=== PATIENT | female | born 1985 | race Caucasian/White ===

== ENCOUNTER 2024-03-23 08:55 | Inpatient (IN) | payer BC ==
[2024-03-23] VITALS (15 sets, daily range): BP systolic 134–162; BP diastolic 62–92; TEMP 97.8–98.7; O2SAT 99
[~2024-03-23] VITALS: Ht 165.1 cm; Wt 54.4 kg
[2024-03-23 11:00] LABS: BILIRUBIN,URINE NEGATIVE (NEGATIVE); BLOOD, URINE TRACE-INTA Ery/uL (NEGATIVE); COLOR,URINE YELLOW (YELLOW); KETONES,URINE NEGATIVE (NEGATIVE); LEUKOCYTE ESTERASE ,URINE 1+ (NEGATIVE); NITRITE, URINE NEGATIVE (NEGATIVE); PH,URINE 7.5 (5.0-8.0); PROTEIN,URINE 2+ mg/dl (NEGATIVE); UGLUCOSE NEGATIVE (NEGATIVE); UROBILINOGEN,URINE 0.2 EU/dL (0.2)
[2024-03-23 11:08] LABS: APPEARANCE,URINE CLEAR (CLEAR)
[2024-03-23 11:10] LABS: ACETAMINOPHEN < 10 ug/ml (10-30); ALANINE AMINOTRANSFERASE 50 U/L (12-78); ALBUMIN 2.1 g/dL (3.4-5.0); ALKALINE PHOSPHATASE 198 U/L (46-116); ASPARTATE AMINOTRANSFERASE 28 U/L (15-37); BILIRUBIN,DIRECT 0.1 mg/dL (0.0-0.2); BILIRUBIN,TOTAL 0.5 mg/dL (0.2-1.0); CALCIUM, SERUM 7.5 mg/dL (8.5-10.1); CARBON DIOXIDE 17 mmol/L (21-32); CHLORIDE 103 mmol/L (98-107); CREATININE 6.3 mg/dL (0.6-1.3); GLUCOSE 88 mg/dL (74-106); POTASSIUM 5.1 mmol/L (3.5-5.1); SALICYLATE 3.3 mg/dL (2.8-20.0); SODIUM SERUM 137 mmol/L (136-145); TOTAL PROTEIN, SERUM 5.6 g/dL (6.4-8.2)
[2024-03-23 11:13] LABS: ALCOHOL, BLOOD < 3 mg/dL (0-10); UREA NITROGEN, BLOOD 97 mg/dL (7-18)
[2024-03-23 11:29] LABS: RBC,URINE 0-2 /HPF (0-2)
[2024-03-23 11:30] LABS: ADD URINE CULTURE YES; BACTERIA,URINE None seen /HPF (None Seen); YEAST,URINE None Seen /HPF (None Seen)
[2024-03-23 11:31] LABS: TRIPLE PHOSPHATE CRYSTAL,UR Few /HPF (None Seen)
[2024-03-23] MEDS ORDERED: LEVO75TA7 PO (11:46)
[2024-03-23] MEDS ORDERED: LURA40TA PO (11:46)
[2024-03-23] MEDS ORDERED: SERT50TA PO (11:46)
[2024-03-23 11:57] LABS: BASOPHILS % (AUTO) 0.4 % (0.0-2.0); EOSINOPHILS # (AUTO) 0.1 K/uL (0.0-0.7); EOSINOPHILS % (AUTO) 1.6 % (0.0-6.0); LYMPHOCYTES # (AUTO) 0.7 K/uL (0.8-4.8); LYMPHOCYTES % (AUTO) 9.3 % (20.0-44.0); MEAN CORPUSCULAR HEMOGLOBIN 34 PG (26.0-33.0); MEAN CORPUSCULAR HGB CONC 34 g/dl (31.0-36.0); MEAN CORPUSCULAR VOLUME 101 fL (82-100); MONOCYTES # (AUTO) 0.4 K/uL (0.1-1.30); MONOCYTES % (AUTO) 5.9 % (2.0-12.0); NEUTROPHILS # (AUTO) 5.9 K/uL (1.8-8.9); NEUTROPHILS % (AUTO) 82.8 % (43.0-81.0); PLATELET COUNT (AUTO) 155 K/uL (150-450); RED CELL DISTRIBUTION WIDTH 16.8 % (11.5-15.0); WHITE BLOOD COUNT (AUTO) 7.1 K/uL (4.3-11.0)
[2024-03-23 12:03] LABS: RED BLOOD CELL COUNT(AUTO) 1.13 MIL/uL (4.0-5.2)
[2024-03-23 12:05] LABS: HEMATOCRIT 11 % (33-45); HEMOGLOBIN 3.9 g/dL (11.5-14.8)
[2024-03-23 12:09] LABS: AMPHETAMINE, URINE NEGATIVE (NEGATIVE); BENZODIAZEPINE, URINE NEGATIVE (NEGATIVE); CANNABINOID, URINE NEGATIVE (NEGATIVE); COCCAINE, URINE NEGATIVE (NEGATIVE); OPIATE, URINE NEGATIVE (NEGATIVE); PHENCYCLIDINE SCREEN,URINE NEGATIVE (NEGATIVE)
[2024-03-23 12:10] LABS: BARBITURATE, URINE POSITIVE (NEGATIVE)
[2024-03-23 14:04] LABS: ANISOCYTOSIS 1+; EOSINOPHILS % (MANUAL) 1 % (0-4); LYMPHOCYTES % (MANUAL) 10 % (16-48); MONOCYTES % (MANUAL) 5 % (0-11.0); NEUTROPHILS % (MANUAL) 82 (42-76); OVALOCYTES 1+; PLATELET ESTIMATE ADEQUATE
[2024-03-23] MEDS: ONDANSETRON HCL/PF - ER 4 MG/2 ML VIAL IV ONE (14:37)
[2024-03-23] MEDS ORDERED: ONDANSETRON HCL/PF 4 MG/2 ML VIAL ONE (14:37)
[2024-03-23] MEDS: ACETAMINOPHEN ES 500 MG TABLET PO PRN (14:43)
[2024-03-23] MEDS ORDERED: ACETAMINOPHEN ES 500 MG TABLET ONE ×2 (14:43→14:44)
[2024-03-23] MEDS ORDERED: Z GUARD REMEDY 4 OZ OINT TP PRN (15:00)
[2024-03-23] MEDS: SOD FERRIC GLUC 125 MG in IV NS 0.9% 100 ML IV SCH (15:30)
[2024-03-23 16:23] LABS: FERRITIN 217 ng/mL (8-388)
[2024-03-23] MEDS: ONDANSETRON HCL/PF 4 MG/2 ML VIAL IVP PRN (16:27)
[2024-03-23] MEDS: HYDROCODONE/APAP 5/325MG TABLET PO PRN (16:34)
[2024-03-23 16:52] LABS: IRON, SERUM 28 ug/dl (50-175); TOTAL IRON BINDING CAPACITY 249 ug/dl (250-450)
[2024-03-23] MEDS: ACETAMINOPHEN 325 MG TABLET PO PRN (19:54)
[2024-03-24] VITALS (9 sets, daily range): BP systolic 137–159; BP diastolic 57–97; TEMP 97.6–98.6; O2SAT 96–99
[2024-03-24] MEDS: HYDROMORPHONE 1 MG/1 ML DISP.SYRIN IV ONE (04:52)
[2024-03-24 08:29] LABS: BASOPHILS % (AUTO) 0.7 % (0.0-2.0); EOSINOPHILS # (AUTO) 0.1 K/uL (0.0-0.7); EOSINOPHILS % (AUTO) 1.9 % (0.0-6.0); HEMATOCRIT 23 % (33-45); HEMOGLOBIN 7.7 g/dL (11.5-14.8); LYMPHOCYTES # (AUTO) 0.4 K/uL (0.8-4.8); LYMPHOCYTES % (AUTO) 7.3 % (20.0-44.0); MEAN CORPUSCULAR HEMOGLOBIN 30 PG (26.0-33.0); MEAN CORPUSCULAR HGB CONC 34 g/dl (31.0-36.0); MEAN CORPUSCULAR VOLUME 88 fL (82-100); MONOCYTES # (AUTO) 0.4 K/uL (0.1-1.30); MONOCYTES % (AUTO) 6.3 % (2.0-12.0); NEUTROPHILS % (AUTO) 83.8 % (43.0-81.0); PLATELET COUNT (AUTO) 157 K/uL (150-450); RED BLOOD CELL COUNT(AUTO) 2.56 MIL/uL (4.0-5.2); RED CELL DISTRIBUTION WIDTH 18.2 % (11.5-15.0)
[2024-03-24 09:19] LABS: THYROID STIMULATING HORMONE 4.238 uIU/mL (0.358-3.74)
[2024-03-24] MEDS ORDERED: ANESTHESIA TRAY IN PYXIS 1 EA TRAY MC ONE (09:33)
[2024-03-24 09:37] LABS: CALCIUM, SERUM 8.4 mg/dL (8.5-10.1); CREATININE 3.3 mg/dL (0.6-1.3); MAGNESIUM 1.9 mg/dL (1.8-2.4); PHOSPHORUS 6.2 mg/dL (2.5-4.9); POTASSIUM 3.8 mmol/L (3.5-5.1)
[2024-03-24 09:41] LABS: PREGNANCY TEST URINE QUAL NEGATIVE (NEGATIVE)
[2024-03-24 10:06] LABS: INR 1.02 (0.91-1.10); PROTHROMBIN TIME 10.8 SECS (9.2-11.1)
[2024-03-24] MEDS: PANTOPRAZOLE 40 MG TABLET.DR PO SCH (11:06)
[2024-03-24] MEDS: diphenhydrAMINE HCL 50 MG/ML VIAL IV ONE (11:31)
[2024-03-24] MEDS: METOCLOPRAMIDE HCL 10 MG/2 ML VIAL IV ONE (11:31)
[2024-03-24] MEDS: SUCRALFATE 1 G/10 ML UDC GT SCH (11:31)
[2024-03-24] MEDS: FLUTICASONE PROPIONATE 16 GM BOTTLE NS SCH (15:41)
[2024-03-24] MEDS: SUMATRIPTAN SUCCINATE 25 MG TABLET PO ONE (18:50)
[2024-03-25] MEDS: TEMAZEPAM 15 MG CAPSULE PO PRN (01:12)
[2024-03-25 04:00] VITALS: BP 152/99; TEMP 98; O2SAT 99
[2024-03-25 06:59] LABS: BASOPHILS % (AUTO) 0.5 % (0.0-2.0); EOSINOPHILS # (AUTO) 0.2 K/uL (0.0-0.7); EOSINOPHILS % (AUTO) 3.1 % (0.0-6.0); HEMATOCRIT 22 % (33-45); HEMOGLOBIN 7.8 g/dL (11.5-14.8); LYMPHOCYTES # (AUTO) 0.8 K/uL (0.8-4.8); LYMPHOCYTES % (AUTO) 16.1 % (20.0-44.0); MEAN CORPUSCULAR HEMOGLOBIN 31 PG (26.0-33.0); MEAN CORPUSCULAR HGB CONC 35 g/dl (31.0-36.0); MEAN CORPUSCULAR VOLUME 90 fL (82-100); MONOCYTES # (AUTO) 0.5 K/uL (0.1-1.30); MONOCYTES % (AUTO) 9.3 % (2.0-12.0); NEUTROPHILS # (AUTO) 3.5 K/uL (1.8-8.9); PLATELET COUNT (AUTO) 156 K/uL (150-450); RED BLOOD CELL COUNT(AUTO) 2.49 MIL/uL (4.0-5.2); RED CELL DISTRIBUTION WIDTH 18.5 % (11.5-15.0); WHITE BLOOD COUNT (AUTO) 4.9 K/uL (4.3-11.0)
[2024-03-25 07:25] LABS: CALCIUM, SERUM 7.5 mg/dL (8.5-10.1); CREATININE 4.1 mg/dL (0.6-1.3); PHOSPHORUS 7.2 mg/dL (2.5-4.9)
[2024-03-25 08:38] VITALS: BP 158/82; TEMP 98.6; O2SAT 96
[2024-03-25] MEDS: LEVOTHYROXINE SODIUM 75 MCG TABLET PO SCH (08:40)
[2024-03-25] MEDS: SERTRALINE HCL 50 MG TABLET PO SCH (08:40)
[2024-03-25 16:07] VITALS: BP 138/68; TEMP 98.5; O2SAT 99
[2024-03-26 01:00] VITALS: BP 167/106; TEMP 98; O2SAT 95
[2024-03-26 01:22] VITALS: BP 164/99; TEMP 98; O2SAT 95
[2024-03-26 02:06] LABS: HEPATITIS B CORE AB, IgM Negative (Negative); HEPATITIS B CORE AB, TOTAL Negative (Negative); HEPATITIS B SURFACE AB Reactive (.)
[2024-03-26 07:31] LABS: BASOPHILS % (AUTO) 0.5 % (0.0-2.0); EOSINOPHILS # (AUTO) 0.2 K/uL (0.0-0.7); EOSINOPHILS % (AUTO) 3.2 % (0.0-6.0); HEMATOCRIT 23 % (33-45); HEMOGLOBIN 7.8 g/dL (11.5-14.8); LYMPHOCYTES # (AUTO) 0.6 K/uL (0.8-4.8); LYMPHOCYTES % (AUTO) 9.5 % (20.0-44.0); MEAN CORPUSCULAR HEMOGLOBIN 30 PG (26.0-33.0); MEAN CORPUSCULAR HGB CONC 33 g/dl (31.0-36.0); MEAN CORPUSCULAR VOLUME 91 fL (82-100); MONOCYTES # (AUTO) 0.5 K/uL (0.1-1.30); MONOCYTES % (AUTO) 8.1 % (2.0-12.0); NEUTROPHILS # (AUTO) 4.7 K/uL (1.8-8.9); NEUTROPHILS % (AUTO) 78.7 % (43.0-81.0); PLATELET COUNT (AUTO) 176 K/uL (150-450); RED BLOOD CELL COUNT(AUTO) 2.56 MIL/uL (4.0-5.2); RED CELL DISTRIBUTION WIDTH 18.9 % (11.5-15.0); WHITE BLOOD COUNT (AUTO) 5.9 K/uL (4.3-11.0)
[2024-03-26 08:00] VITALS: BP 166/97; TEMP 97.8; O2SAT 95
[2024-03-26 08:11] LABS: HEPATITIS B SURFACE AB Reactive (.)
[2024-03-26 08:57] LABS: CALCIUM, SERUM 8.8 mg/dL (8.5-10.1); CREATININE 4.5 mg/dL (0.6-1.3); PHOSPHORUS 7.8 mg/dL (2.5-4.9); POTASSIUM 4.6 mmol/L (3.5-5.1)
[2024-03-26 09:02] LABS: MAGNESIUM 2.1 mg/dL (1.8-2.4)
[2024-03-26 09:59] VITALS: BP 166/97
[2024-03-26] MEDS: hydrALAZINE HCL 25 MG TABLET PO PRN (09:59)
[2024-03-26] MEDS: ALPRAZOLAM 0.25 MG TABLET PO ONE (10:58)
[2024-03-26] MEDS: SUCRALFATE 1 G TABLET PO SCH (12:00)
[2024-03-26] MEDS ORDERED: PANT40TA49 PO (12:21)
[2024-03-26] MEDS ORDERED: FERR325T23 PO (12:21)
[2024-03-26] MEDS ORDERED: SUCR1TAB31 PO (12:21)
== END 2024-03-26 12:34 | disposition home or self-care (01) | DRG 377 ==
LOC: ER 09:16 → TRANSITION 14:25 → TELE1 16:07 → MEDSG1 03-24 11:19
PROVIDERS: ADMIT Nurse Practitioner Family; ATTEND Student in an Organized Health Care Education/Training Program
PROC: 30233N1 Transfusion of Nonautologous Red Blood Cells into Peripheral Vein, Percutaneous Approach (ICD-10-PCS; principal; 2024-03-23)
PROC: 05HB33Z Insertion of Infusion Device into Right Basilic Vein, Percutaneous Approach (ICD-10-PCS; 2024-03-23)
PROC: B54MZZA Ultrasonography of Right Upper Extremity Veins, Guidance (ICD-10-PCS; 2024-03-23)
PROC: 0DB98ZX Excision of Duodenum, Via Natural or Artificial Opening Endoscopic, Diagnostic (ICD-10-PCS; 2024-03-24)
PROC: 5A1D70Z Performance of Urinary Filtration, Intermittent, Less than 6 Hours Per Day (ICD-10-PCS; 2024-03-24)
DX: K25.4 Chronic or unspecified gastric ulcer with hemorrhage (principal); N17.0 Acute kidney failure with tubular necrosis; E44.0 Moderate protein-calorie malnutrition; I13.0 Hypertensive heart and chronic kidney disease with heart failure and stage 1 through stage 4 chronic kidney disease, or unspecified chronic kidney disease; N18.4 Chronic kidney disease, stage 4 (severe); D62 Acute posthemorrhagic anemia; I50.9 Heart failure, unspecified; K29.70 Gastritis, unspecified, without bleeding; K20.90 Esophagitis, unspecified without bleeding; E03.9 Hypothyroidism, unspecified; E86.0 Dehydration; F15.10 Other stimulant abuse, uncomplicated; Z88.0 Allergy status to penicillin; E88.09 Other disorders of plasma-protein metabolism, not elsewhere classified; F39 Unspecified mood [affective] disorder; G43.909 Migraine, unspecified, not intractable, without status migrainosus; H69.90 Unspecified Eustachian tube disorder, unspecified ear; K44.9 Diaphragmatic hernia without obstruction or gangrene; D63.1 Anemia in chronic kidney disease; N25.0 Renal osteodystrophy; D50.9 Iron deficiency anemia, unspecified; Z87.891 Personal history of nicotine dependence; Z68.20 Body mass index [BMI] 20.0-20.9, adult; Z99.2 Dependence on renal dialysis
CPT/HCPCS: 36415; 71045-TC; 80048-TC; 80076-TC; 81001; 82607-TC; 82728-TC; 83540-TC; 83735-TC; 84100-TC; 84443-TC; 84703-TC; 85025-TC; 85610-TC; 86704; 86705; 86706; 86803; 86850-TC; 87081-TC; 87086-TC; 87340; 90935-TC; A4223; G0378; G0480; J1170; J1200; J2405; J2704; J2765; J2916; J3490; J7030; J7040; J7050; P9016

== ENCOUNTER 2024-08-27 07:59 | Emergency (ER) | payer BC ==
[~2024-08-27] VITALS: Ht 167.6 cm; Wt 76.2 kg
[2024-08-27 07:59] VITALS: TEMP 98.5
[~2024-08-27 07:59] MED LIST: FERR325T23 PO; LEVO75TA7 PO; LURA40TA PO; PANT40TA49 PO; SERT50TA PO; SUCR1TAB31 PO
[2024-08-27 09:25] LABS: BASOPHILS % (AUTO) 0.7 % (0.0-2.0); EOSINOPHILS # (AUTO) 0.2 K/uL (0.0-0.7); EOSINOPHILS % (AUTO) 4.9 % (0.0-6.0); HEMATOCRIT 26 % (33-45); HEMOGLOBIN 9.1 g/dL (11.5-14.8); LYMPHOCYTES # (AUTO) 0.6 K/uL (0.8-4.8); MEAN CORPUSCULAR HEMOGLOBIN 34 PG (26.0-33.0); MEAN CORPUSCULAR HGB CONC 35 g/dl (31.0-36.0); MEAN CORPUSCULAR VOLUME 99 fL (82-100); MONOCYTES # (AUTO) 0.5 K/uL (0.1-1.30); MONOCYTES % (AUTO) 10.9 % (2.0-12.0); NEUTROPHILS # (AUTO) 2.9 K/uL (1.8-8.9); NEUTROPHILS % (AUTO) 69.5 % (43.0-81.0); PLATELET COUNT (AUTO) 192 K/uL (150-450); RED BLOOD CELL COUNT(AUTO) 2.66 MIL/uL (4.0-5.2); RED CELL DISTRIBUTION WIDTH 15.3 % (11.5-15.0); WHITE BLOOD COUNT (AUTO) 4.2 K/uL (4.3-11.0)
[2024-08-27 09:35] LABS: CALCIUM, SERUM 8.8 mg/dL (8.5-10.1); CREATININE 3.8 mg/dL (0.6-1.3); POTASSIUM 3.9 mmol/L (3.5-5.1)
[2024-08-27 10:34] VITALS: BP 134/74; O2SAT 96
== END 2024-08-27 10:36 | disposition home or self-care (01) ==
LOC: ER 08:03
DX: N18.6 End stage renal disease (principal); F17.200 Nicotine dependence, unspecified, uncomplicated; R25.2 Cramp and spasm; R25.3 Fasciculation; R53.1 Weakness; R10.2 Pelvic and perineal pain; Z79.899 Other long term (current) drug therapy; Z88.0 Allergy status to penicillin; Z99.2 Dependence on renal dialysis; Z87.42 Personal history of other diseases of the female genital tract
CPT/HCPCS: 36415; 71045-TC; 80048-TC; 84702-TC; 85025-TC; G0480

== ENCOUNTER 2024-12-15 03:19 | Inpatient (IN) | payer OTHER, BC ==
[~2024-12-15] VITALS: Ht 165.1 cm; Wt 72.6 kg
[2024-12-15] MEDS: IV NS 0.9% 500 ML BAG IV ONE (04:04)
[2024-12-15 04:15] LABS: BASOPHILS % (AUTO) 0.6 % (0.0-2.0); EOSINOPHILS # (AUTO) 0.1 K/uL (0.0-0.7); EOSINOPHILS % (AUTO) 2.5 % (0.0-6.0); HEMATOCRIT 28 % (33-45); LYMPHOCYTES # (AUTO) 0.8 K/uL (0.8-4.8); LYMPHOCYTES % (AUTO) 14.6 % (20.0-44.0); MEAN CORPUSCULAR HEMOGLOBIN 34 PG (26.0-33.0); MEAN CORPUSCULAR HGB CONC 36 g/dl (31.0-36.0); MEAN CORPUSCULAR VOLUME 95 fL (82-100); MONOCYTES # (AUTO) 0.5 K/uL (0.1-1.30); MONOCYTES % (AUTO) 9.3 % (2.0-12.0); NEUTROPHILS # (AUTO) 3.9 K/uL (1.8-8.9); PLATELET COUNT (AUTO) 219 K/uL (150-450); RED BLOOD CELL COUNT(AUTO) 2.95 MIL/uL (4.0-5.2); RED CELL DISTRIBUTION WIDTH 15.1 % (11.5-15.0); WHITE BLOOD COUNT (AUTO) 5.4 K/uL (4.3-11.0)
[2024-12-15 04:35] LABS: CALCIUM, SERUM 9.5 mg/dL (8.5-10.1); CARBON DIOXIDE 35 mmol/L (21-32); CHLORIDE 95 mmol/L (98-107); CREATININE 5.4 mg/dL (0.6-1.3); GLUCOSE 116 mg/dL (74-106); SODIUM SERUM 140 mmol/L (136-145); UREA NITROGEN, BLOOD 27 mg/dL (7-18)
[2024-12-15 04:40] LABS: ALANINE AMINOTRANSFERASE 14 U/L (12-78); ALBUMIN 3.5 g/dL (3.4-5.0); ALKALINE PHOSPHATASE 386 U/L (46-116); ASPARTATE AMINOTRANSFERASE 12 U/L (15-37); BILIRUBIN,DIRECT 0.1 mg/dL (0.0-0.2); BILIRUBIN,TOTAL 0.4 mg/dL (0.2-1.0); TOTAL PROTEIN, SERUM 6.8 g/dL (6.4-8.2)
[2024-12-15] MEDS: POTASSIUM CHLORIDE 20 MEQ TAB.PRT.SR PO ONE (04:57)
[2024-12-15] MEDS ORDERED: MECLIZINE HCL 25 MG TABLET ONE (05:32)
[2024-12-15] MEDS: MECLIZINE HCL 12.5 MG TABLET PO ONE (05:36)
[2024-12-15] MEDS ORDERED: Z GUARD REMEDY 4 OZ OINT TP PRN (07:00)
[2024-12-15] MEDS ORDERED: ONDANSETRON HCL/PF 4 MG/2 ML VIAL IVP PRN (07:00)
[2024-12-15] MEDS ORDERED: ACETAMINOPHEN 325 MG TABLET PO PRN (07:00)
[2024-12-15] MEDS ORDERED: MAG HYDROX/AL HYDROX/SIMETH 30 ML UDC PO PRN (07:00)
[2024-12-15] MEDS ORDERED: MAGNESIUM HYDROXIDE 30 ML UDC PO PRN (07:00)
[2024-12-15] MEDS: SUCRALFATE 1 G TABLET PO SCH (07:30)
[2024-12-15 08:00] VITALS: O2SAT 97
[2024-12-15 08:45] LABS: THYROID STIMULATING HORMONE 2.86 uIU/mL (0.358-3.74)
[2024-12-15 08:54] LABS: MAGNESIUM 2.2 mg/dL (1.8-2.4); PHOSPHORUS 6.5 mg/dL (2.5-4.9)
[2024-12-15] MEDS: SERTRALINE HCL 50 MG TABLET PO SCH (09:00)
[2024-12-15] MEDS: FERROUS SULFATE (325 MG) 325 MG/TAB TABLET PO SCH (09:17)
[2024-12-15] MEDS: LEVOTHYROXINE SODIUM 75 MCG TABLET PO SCH (09:17)
[2024-12-15] MEDS: PANTOPRAZOLE 40 MG TABLET.DR PO SCH (09:17)
[2024-12-15] MEDS ORDERED: SEVE800T28 PO (09:57)
[2024-12-15] MEDS ORDERED: DOXE75CA4 PO (09:57)
[2024-12-15] MEDS ORDERED: ZIPR60CA2 PO (09:57)
[2024-12-15] MEDS ORDERED: AMLO-212 PO (09:57)
[2024-12-15] MEDS ORDERED: FAMO40TA7 PO (09:57)
[2024-12-15] MEDS ORDERED: GABA-536 PO (09:57)
[2024-12-15 10:53] VITALS: BP_SYST 125; BP_SYST 150; BP_DIAS 56; BP_DIAS 69; TEMP 97.5; TEMP 97.9; O2SAT 96; O2SAT 99
== END 2024-12-15 14:15 | disposition home or self-care (01) | DRG 425 ==
LOC: ER 03:25 → TELE 07:39
DX: E87.8 Other disorders of electrolyte and fluid balance, not elsewhere classified (principal); I12.0 Hypertensive chronic kidney disease with stage 5 chronic kidney disease or end stage renal disease; J81.1 Chronic pulmonary edema; E44.0 Moderate protein-calorie malnutrition; E88.09 Other disorders of plasma-protein metabolism, not elsewhere classified; D63.8 Anemia in other chronic diseases classified elsewhere; R55 Syncope and collapse; N18.6 End stage renal disease; Z99.2 Dependence on renal dialysis; E03.9 Hypothyroidism, unspecified; E87.70 Fluid overload, unspecified; K29.70 Gastritis, unspecified, without bleeding; Z88.0 Allergy status to penicillin; F32.A Depression, unspecified; K20.90 Esophagitis, unspecified without bleeding; K44.9 Diaphragmatic hernia without obstruction or gangrene; K25.9 Gastric ulcer, unspecified as acute or chronic, without hemorrhage or perforation; F15.10 Other stimulant abuse, uncomplicated; N25.0 Renal osteodystrophy; Z68.26 Body mass index [BMI] 26.0-26.9, adult
CPT/HCPCS: 36415; 70450-TC; 71045-TC; 80048-TC; 80061-TC; 80076-TC; 83735-TC; 84100-TC; 84443-TC; 84484-TC; 85025-TC; 97116-TC; 97530-TC; A4223; G0378; J7040; J8597